=== PATIENT | male | born 1970 | race Caucasian/White ===

== ENCOUNTER 2023-07-31 10:58 | Inpatient (IN) | payer MEDICAID, OTHER ==
[~2023-07-31] VITALS: Ht 175.3 cm; Wt 70.3 kg
[2023-07-31] MEDS: VANCOMYCIN 1G PREMIX 200 ML IV SCH (11:15)
[2023-07-31 11:41] LABS: BASOPHILS % 0.3 % (0.0-2.0); EOSINOPHILS % 0.6 % (0.0-5.0); HEMATOCRIT. 39.3 % (42.0-52.0); HEMOGLOBIN. 13.5 g/dL (14.0-18.0); LYMPHOCYTES % 18.9 % (20.0-50.0); MEAN CORPUSCULAR HGB CONC 34.5 g/dL (31.0-37.0); MEAN PLATELET VOLUME 8.3 fl (7.4-10.4); MONOCYTES % 5.3 % (2.0-8.0); NEUTROPHILS % 74.9 % (40.0-76.0); PLATELET 271 x1000/uL (130-400); RED BLOOD CELL COUNT 4.51 mill/uL (4.7-6.1); RED CELL DISTRIBUTION WIDTH 12.8 % (11.6-14.6); WHITE BLOOD COUNT 9.1 x1000/uL (4.5-11.0)
[2023-07-31] MEDS: AMPICILLIN SOD/SULBACTAM NA 3 G in SODIUM CHLORIDE 0.9% 100 ML IV SCH (11:56)
[2023-07-31 12:02] LABS: ALANINE AMINOTRANSFERASE 10 IU/L (10-49); ALBUMIN 4.5 g/dL (3.2-4.8); ASPARTATE AMINOTRANSFERASE 10 IU/L (<34); BILIRUBIN TOTAL 0.4 mg/dL (0.1-1.0); CALCIUM 8.9 mg/dL (8.7-10.4); CARBON DIOXIDE 29 mEq/L (21-32); CHLORIDE 102 mEq/L (98-107); CREATININE 0.9 mg/dL (0.6-1.3); GLUCOSE 260 mg/dL (70-105); POTASSIUM 4.4 mEq/L (3.5-5.1); PROTEIN TOTAL 7.7 g/dL (6.0-8.3); SODIUM 135 mEq/L (136-145); UREA NITROGEN BLOOD 18 mg/dL (9-23)
[2023-07-31 12:05] LABS: INR 0.9; PROTHROMBIN TIME 9.9 sec (9.6-11.0)
[2023-07-31] MEDS ORDERED: CLONIDINE 0.1MG TABLET PO PRN (15:15)
[2023-07-31] MEDS ORDERED: ONDANSETRON HCL 4MG/2ML INJ IV PRN (15:15)
[2023-07-31] MEDS ORDERED: IPRATROPIUM/ALBUTEROL 0.5-3(2.5)MG/3ML NEB HHN PRN (15:15)
[2023-07-31] MEDS ORDERED: DOCUSATE SODIUM 100MG CAPSULE PO PRN (15:15)
[2023-07-31] MEDS ORDERED: ACETAMINOPHEN 325MG TABLET PO PRN ×2 (15:15)
[2023-07-31] MEDS ORDERED: DEXTROSE 50% WATER 50ML SYRINGE IV PRN (15:15)
[2023-07-31] MEDS: AMLODIPINE 5MG TABLET PO SCH (15:30)
[2023-07-31 16:00] VITALS: BP 135/70; PULSE 62; RESP 20; TEMP 97.4
[2023-07-31] MEDS: BLOOD SUGAR DIAGNOSTIC STRIP TEST SCH (16:45)
[2023-07-31] MEDS ORDERED: NALOXONE HCL 0.4MG/ML VIAL IV PRN (17:15)
[2023-07-31 17:50] VITALS: BP 135/70; PULSE 62; RESP 20; TEMP 97.4
[2023-07-31] MEDS: INSULIN LISPRO 100 UNITS/ML SUBCUT SCH (17:50)
[2023-07-31 20:00] VITALS: BP 102/51; PULSE 70; RESP 18; TEMP 98.4
[2023-07-31] MEDS: VANCOMYCIN 1.25GM PMX (XELLIA) 250 ML IV NR (21:45)
[2023-07-31] MEDS: CEFEPIME 2,000 MG in DEXT 5% WATER 100 ML IV SCH (21:45)
[2023-08-01] VITALS: BP 112/58; PULSE 70; RESP 18; TEMP 98.2
[2023-08-01 04:00] VITALS: BP 99/43; PULSE 66; RESP 18; TEMP 97.3
[2023-08-01] MEDS: VANCOMYCIN 750MG PREMIX 150 ML IV SCH (05:32)
[2023-08-01 07:32] LABS: BASOPHILS % 0.3 % (0.0-2.0); EOSINOPHILS % 1.5 % (0.0-5.0); HEMATOCRIT. 38.6 % (42.0-52.0); HEMOGLOBIN. 13.2 g/dL (14.0-18.0); LYMPHOCYTES % 29.4 % (20.0-50.0); MEAN CORPUSCULAR HEMOGLOBIN 29.5 pg (28.0-32.0); MEAN CORPUSCULAR HGB CONC 34.1 g/dL (31.0-37.0); MEAN CORPUSCULAR VOLUME 86.5 fL (80.0-94.0); MEAN PLATELET VOLUME 8.3 fl (7.4-10.4); MONOCYTES % 7.3 % (2.0-8.0); NEUTROPHILS % 61.5 % (40.0-76.0); PLATELET 250 x1000/uL (130-400); RED BLOOD CELL COUNT 4.46 mill/uL (4.7-6.1); WHITE BLOOD COUNT 6.5 x1000/uL (4.5-11.0)
[2023-08-01 07:57] LABS: CALCIUM 8.9 mg/dL (8.7-10.4); CARBON DIOXIDE 30 mEq/L (21-32); CHLORIDE 102 mEq/L (98-107); CREATININE 0.9 mg/dL (0.6-1.3); GLUCOSE 266 mg/dL (70-105); POTASSIUM 4.5 mEq/L (3.5-5.1); SODIUM 136 mEq/L (136-145); UREA NITROGEN BLOOD 16 mg/dL (9-23)
[2023-08-01 08:00] VITALS: BP 110/58; PULSE 61; RESP 19; TEMP 98.2
[2023-08-01] MEDS: CEFEPIME 2,000 MG in DEXT 5% WATER 100 ML IV SCH (09:31)
[2023-08-01 12:00] VITALS: BP 121/73; PULSE 66; RESP 19; TEMP 98
[2023-08-01] MEDS ORDERED: LIDOCAINE HCL 1% 10 MG/ML 10ML VIAL ONE (13:06)
[2023-08-01 20:00] VITALS: BP 130/70; PULSE 65; RESP 16; TEMP 98.6
[2023-08-02] VITALS: BP 118/74; PULSE 69; RESP 18; TEMP 97.7
[2023-08-02 04:00] VITALS: BP 118/74; PULSE 63; RESP 20; TEMP 98.2
[2023-08-02 08:00] VITALS: BP_SYST 102; BP_SYST 107; BP_DIAS 62; BP_DIAS 67; PULSE 60; PULSE 64; RESP 18; RESP 19; TEMP 96.8; TEMP 97.7
[2023-08-02 12:00] VITALS: BP 107/67; PULSE 60; RESP 19; TEMP 97.7
[2023-08-02 16:00] VITALS: BP 117/68; PULSE 64; RESP 19; TEMP 98.2
[2023-08-02] MEDS: INSULIN LISPRO 100 UNITS/ML SUBCUT SCH (18:23)
[2023-08-02 20:00] VITALS: BP 111/60; PULSE 68; RESP 19; TEMP 98.1
[2023-08-02] MEDS: HYDROCODONE/ACETAMINOPHEN 5/325MG TABLET PO PRN (20:09)
[2023-08-02] MEDS: INSULIN GLARGINE 100 UNITS/ML SUBCUT SCH (21:49)
[2023-08-03] VITALS: BP 102/61; PULSE 61; RESP 20; TEMP 97.5
[2023-08-03 04:00] VITALS: BP 142/77; PULSE 64; RESP 17; TEMP 98.1
[2023-08-03 08:00] VITALS: BP 119/72; PULSE 66; RESP 18; TEMP 97.9
[2023-08-03 08:00] LABS: BASOPHILS % 0.4 % (0.0-2.0); EOSINOPHILS % 1.5 % (0.0-5.0); HEMATOCRIT. 40.7 % (42.0-52.0); HEMOGLOBIN. 13.9 g/dL (14.0-18.0); MEAN CORPUSCULAR HEMOGLOBIN 29.3 pg (28.0-32.0); MEAN CORPUSCULAR HGB CONC 34.2 g/dL (31.0-37.0); MEAN CORPUSCULAR VOLUME 85.9 fL (80.0-94.0); MEAN PLATELET VOLUME 8.3 fl (7.4-10.4); MONOCYTES % 7.2 % (2.0-8.0); NEUTROPHILS % 55.9 % (40.0-76.0); PLATELET 287 x1000/uL (130-400); RED BLOOD CELL COUNT 4.74 mill/uL (4.7-6.1); WHITE BLOOD COUNT 6.6 x1000/uL (4.5-11.0)
[2023-08-03 08:54] LABS: CARBON DIOXIDE 25 mEq/L (21-32); CHLORIDE 104 mEq/L (98-107); CREATININE 0.9 mg/dL (0.6-1.3); GLUCOSE 189 mg/dL (70-105); POTASSIUM 4.3 mEq/L (3.5-5.1); SODIUM 136 mEq/L (136-145); UREA NITROGEN BLOOD 17 mg/dL (9-23)
[2023-08-03 12:00] VITALS: BP 118/73; PULSE 68; RESP 17; TEMP 97.5
[2023-08-03 12:48] LABS: CREATINE KINASE 48 IU/L (46-171)
[2023-08-03 20:00] VITALS: BP 115/69; PULSE 71; RESP 18; TEMP 98.1
[2023-08-04] VITALS: BP 105/60; PULSE 83; RESP 17; TEMP 99.2
[2023-08-04 04:00] VITALS: BP 119/71; PULSE 72; RESP 20; TEMP 97.4
[2023-08-04] MEDS ORDERED: [UNRECOGNIZED DRUG - CODE] MC (07:17)
[2023-08-04] MEDS ORDERED: INSLIS SUBCUT (07:17)
[2023-08-04] MEDS ORDERED: AMLO5TAB88 PO (07:17)
[2023-08-04] MEDS ORDERED: LANC-867 MC (07:17)
[2023-08-04] MEDS ORDERED: BLOO-1747 MC (07:17)
[2023-08-04] MEDS ORDERED: LANTUSUD SUBCUT (07:17)
[2023-08-04 07:19] LABS: BASOPHILS % 0.5 % (0.0-2.0); HEMATOCRIT. 40.6 % (42.0-52.0); HEMOGLOBIN. 14.1 g/dL (14.0-18.0); LYMPHOCYTES % 28.3 % (20.0-50.0); MEAN CORPUSCULAR HEMOGLOBIN 29.7 pg (28.0-32.0); MEAN CORPUSCULAR HGB CONC 34.7 g/dL (31.0-37.0); MEAN CORPUSCULAR VOLUME 85.6 fL (80.0-94.0); MEAN PLATELET VOLUME 8.4 fl (7.4-10.4); MONOCYTES % 6.4 % (2.0-8.0); NEUTROPHILS % 62.8 % (40.0-76.0); PLATELET 285 x1000/uL (130-400); RED BLOOD CELL COUNT 4.74 mill/uL (4.7-6.1); RED CELL DISTRIBUTION WIDTH 12.6 % (11.6-14.6); WHITE BLOOD COUNT 6.8 x1000/uL (4.5-11.0)
[2023-08-04 07:54] LABS: CALCIUM 9.2 mg/dL (8.7-10.4); CARBON DIOXIDE 25 mEq/L (21-32); CHLORIDE 104 mEq/L (98-107); CREATININE 0.8 mg/dL (0.6-1.3); GLUCOSE 159 mg/dL (70-105); POTASSIUM 4.3 mEq/L (3.5-5.1); SODIUM 136 mEq/L (136-145); UREA NITROGEN BLOOD 18 mg/dL (9-23)
[2023-08-04 11:16] VITALS: BP 120/72; PULSE 68; TEMP 97.5; O2SAT 97
== END 2023-08-04 14:55 | disposition home health service (06) | DRG 344 ==
LOC: EDBEDREQ 11:19 → EDBEDREQSVC 11:20 → EDBEDREQTM 11:20 → ER 12:34 → 5WST 12:47 → EDBEDREQ 12:51 → EDBEDREQTM 12:51 → 6EST 16:51
PROVIDERS: ADMIT Internal Medicine; ATTEND Internal Medicine
PROC: 02HV33Z Insertion of Infusion Device into Superior Vena Cava, Percutaneous Approach (ICD-10-PCS; principal; 2023-08-01)
PROC: B548ZZA Ultrasonography of Superior Vena Cava, Guidance (ICD-10-PCS; 2023-08-01)
DX: E11.69 Type 2 diabetes mellitus with other specified complication (principal); M86.8X7 Other osteomyelitis, ankle and foot; E11.621 Type 2 diabetes mellitus with foot ulcer; L03.032 Cellulitis of left toe; E11.628 Type 2 diabetes mellitus with other skin complications; L97.529 Non-pressure chronic ulcer of other part of left foot with unspecified severity; Z79.4 Long term (current) use of insulin; Z79.899 Other long term (current) drug therapy
CPT/HCPCS: 36415; 36573; 71045; 73660; 73721; 80048; 80053; 80202; 82550; 82962; 83036; 83605; 84145; 85025; 93005; 99285; C1725; J0295; J0692; J1815; J3370; J3490; J7050; J7060